=== PATIENT | female | born 2000 | race Caucasian/White ===

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

== ENCOUNTER 2018-08-19 23:34 | Emergency (ER) | payer BC ==
[2018-08-20] MEDS: MINERAL OIL 30ML CUP PO (06:45)
== END 2018-08-20 08:27 | disposition home or self-care (01) ==
LOC: FTE 23:34
DX: M79.89 Other specified soft tissue disorders (principal); J45.909 Unspecified asthma, uncomplicated
CPT/HCPCS: 73130; 73130-RT; 99283-25